=== PATIENT | male | born 1965 | race Caucasian/White ===

== ENCOUNTER 2019-05-11 10:01 | Outpatient (CLI) | payer OTHER ==
[2019-05-11 11:46] VITALS: BP 138/87
--- NOTE | 2019-05-11 11:46 | SLEEP CARE CONSULTATION ---
Information from patient questionnaire entered by Leigh Martinez. I have reviewed and concur with the information entered by Leigh Martinez. This document represents the service I personally performed and the decisions made by me, Zeyad Porter MD, [facility]. History of Present Illness Reason for Visit: New patient, Previously diagnosed sleep apnea, sleep apnea on CPAP therapy Chief Complaint: reports: Other (critical access hospital care) Duration of Symptoms: 9 years Usual bedtime: 2330 Time it takes to fall asleep: 30-60 minutes Snores at night: Yes Observed to quit breathing while asleep: Yes Sleeps alone due to snoring: Yes Number of times waking at night: 4 Reasons for waking at night: reports: Snoring Toss, Turn, or Twitch while sleeping: Yes Recalls having dreams: Yes Usually gets out of bed at: 0700 Feels refreshed in the morning: No Morning headache: No Sleepy or fatigued during the day: Yes Ever fallen asleep while driving: Yes Takes day naps: Yes Dreams during day naps: No Prior sleep studies: Yes Year and Where: 2016 [facility] Additional HPI information: I had the pleasure of seeing Mr. Thompson today regarding obstructive sleep apnea- hypopnea. As you know, he is a 54 year old gentleman who was diagnosed with the sleep-disordered breathing at the [facility] in 2017. The AHI was 48.5 and bubba oxygen saturation, 81%. He was prescribed a CPAP device set at 7 11 cmH2 O. He uses the ResMed [id number] every night and all night. The compliance data show usage in 162 out of the past 180 nights, averaging 7 hours a night. The residual AHI is 0.4 and average air leak is 3.3 L/minute. He wears a Respironics DreamWear nasal cushion mask. He gets his supplies from [employer]. He finds the treatment very beneficial. CPAP Compliance Data - Data Reviewed with Patient Average duration of nightly device use: 7h 0m Compliance rate %: 84 Current pressure setting (cmH2O): 7-11 Subjective Initial [place] Sleepiness Scale score: 7 Past Medical History Past Medical History: reports: Hypertension, Arthritis, Other (OSCAR on CPAP) Social History The patient's occupation is retired. Patient is and lives in [place]. Have you smoked in the past 12 months: Yes Cigarettes per day (20/pack): 20 Years of smokin Quit date: in process Smoking Pack Years: 42.0 Alcohol use: Yes Alcohol amount and frequency: couple times a year Caffeine use: Yes Caffeine amount and frequency: 4-5 times/week Allergies and Home Medications Drug allergies reviewed: Yes Home medication list reviewed: Yes Review of Systems Weight gain over past 5 years: 30 Weight loss over past 5 years: 20 Cardiovascular: reports: high blood pressure Respiratory: reports: wheeze Gastrointestinal: reports: heartburn Urinary: denies: incontinence, frequency, urgency, impotence, other Neurological: denies: headaches, seizure, head trauma, disorientation, speech dysfunction, gait or balance problems, fainting or unconsciousness, other Psychiatric: denies: Attention Deficit Hyperactivity, anxiety, depression, mood disorder, claustrophobia, other Ear/Nose/Throat: reports: nasal congestion, wisdom teeth removed Endocrine: reports: sluggishness Musculoskeletal: reports: joint pain, neck pain, back pain, mobility problems Immunologic: denies: sneezing, rash, itching, allergies to food or environment, other Physical Exam Vital signs obtained and entered by: Dr. Porter Blood Pressure: 138/87 Cuff size: regular Heart Rate: 88 O2 Saturation: 94 Height: 5 ft 10 in Weight: 260 lb Body Mass Index: 37.3 BMI Classification: Obesity Class 2 Neck circumference: 17 Mood/affect: Normal HEENT: No craniofacial malformation Nostrils: patent to airflow Turbinates: normal Septum: midline Mouth and throat: narrow oropharynx Soft palate: long Hard palate: normal Uvula: normal Uvula visualization: 25% Mallampati Class III Tongue: normal in size Tonsils: small Chin and jaw: Micrognathia Neck: normal w/o lymphadenopathy or thyromegaly Heart: regular rate and rhythm Lungs: clear bilaterally Abdomen: soft, non-tender Extremities: no edema or clubbing Neurologic: intact, no focal deficits Impression and Plan IMPRESSION: 1. Obstructive Sleep Apnea-Hypopnea Syndrome, severe, as previously diagnosed. The patient has had good treatment compliance. The current pressure setting appears effective and comfortable. The patient experiences improvement on the treatment. Narrow oropharynx and obesity are common predisposing factors for obstructive sleep apnea-hypopnea syndrome. Pathophysiology of sleep-disordered breathing was discussed. No adjustment is necessary. Plan: 1. Prescription made for supplies. The patient will stay with [facility]. 2. Try to lose weight. 3. Avoid alcohol, sedative and muscle relaxant around bedtime. 4. Return for follow up in a year or earlier if there is any problem. I spent 100% of this visit face to face with the patient with greater than 50% of this was spent time counseling the patient and coordination of care.
== END 2019-05-11 10:02 | disposition home or self-care (01) ==
LOC: SC 10:01
PROVIDERS: ATTEND Internal Medicine Pulmonary Disease
DX: G47.33 Obstructive sleep apnea (adult) (pediatric) (principal); E66.9 Obesity, unspecified; Z68.37 Body mass index [BMI] 37.0-37.9, adult
CPT/HCPCS: 99203; 99212

== ENCOUNTER 2020-10-10 11:10 | Outpatient (CLI) | payer OTHER ==
--- NOTE | 2020-10-10 11:39 | SLEEP CARE CONSULTATION ---
Information from patient questionnaire entered by Smita Bradford. I have reviewed and concur with the information entered by Smita Bradford. This document represents the service I personally performed and the decisions made by , Leti Ocasio ARNP. History of Present Illness Service Date and Time: 10/10/2020 1110 Previous diagnosis: Severe, Obstructive Sleep Apnea-Hypopnea Syndrome AHI: 48.5 (in 2016) Reason for follow up: annual (last seen 04/2019) Equipment type: CPAP Equipment obtained from: [employer] (getting supplies as needed) Mask style: Nasal Mask brand: Respironics (Dreamwear) Backup mask available: Yes (old mask) Last cushion change: 1 month Prior sleep studies: Yes Year and Where: [address] [place] [address] Sleep Lab Type of Sleep Study: Polysomnography HPI additional information: CHARISSE LEVINE was diagnosed to have severe, AHI 48.5, obstructive sleep apnea- hypopnea syndrome and returned today for CPAP therapy annual follow-up. CPAP Compliance Data - Data Reviewed with Patient Average duration of nightly device use: 7 hr 14 min Compliance rate %: 97 (180 days) Current pressure setting (cmH2O): 7-11 Humidity settin Average residual AHI: 0.3 Subjective Missed days of use due to: reports: other (machine error; not working, clicking noise for last 1.5 weeks) Patient concerns: reports: other (not working). denies: aerophagia, mask disc omfort, air blowing in eyes, mask leak noise, condensation in mask/hose, nasal congestion, dry mouth, nose, throat, epistaxis Observed to snore while using device: No Current pressure setting perceived as: comfortable On therapy, patient: reports: sleeping better, awakening more refreshed, being more awake and alert during the day, more rested overall. denies: drowsiness while driving Initial [place] Sleepiness Scale score: 7 (in 2019) Current [place] Sleepiness Scale score: 8 Allergies and Home Medications Home medication list reviewed: Yes (Plavix, baby aspirin, cholesterol pill, Metformin, Trulicity, Micardis) Review of Systems Review of systems same as previous: No (Stent placed February 2020 in coronary artery) Physical Exam Heart Rate: 75 O2 Saturation: 96 Height: 5 ft 10 in Weight: 237 lb Body Mass Index: 34.0 BMI Classification: Obese Impression and Plan 1. Obstructive Sleep Apnea-Hypopnea Syndrome, severe, with good treatment compliance and excellent apnea control. On CPAP therapy, the patient has better sleep quality and is more rested overall. Patient states his machine started to make a click at work about a week and half ago. He thinks he is due for a new machine anyway and would like to update this. The patients CPAP is over 5 years old and of reasonable use. In addition, it is starting to make noise and will not run, a sign of malfunction. Thus, the CPAP will be updated. A DWO prescription will be made. Compliance guidelines for new device and follow up discussed. Patient's apnea severity and rationale for treatment to reduce apnea, improve sleep quality and reduce cardiovascular and cerebrovascular events was reviewed. I also reviewed the benefit of consistent device use of CPAP for hypertension. * Continue auto CPAP pressure at 7-11 cmH2O * Update machine due to malfunction * Notify me if snoring with mask or feeling that the pressure is too much or too little * Attempt to lose weight * Call this office if any problems using CPAP * Return for follow up after getting set up with new machine, or sooner if concerns arise Counseling Topics: Spare mask, Weight loss health impact Visit Type: In Office Time Spent with Patient (minutes): 21 Provider Statement: I spent 100% of the Face to Face Visit with the patient with greater than 50% spent counseling the patient and coordination of care.
== END 2020-10-10 11:11 | disposition home or self-care (01) ==
LOC: SC 11:10
PROVIDERS: ATTEND Nurse Practitioner Family
DX: G47.33 Obstructive sleep apnea (adult) (pediatric) (principal); E66.9 Obesity, unspecified; Z68.34 Body mass index [BMI] 34.0-34.9, adult
CPT/HCPCS: 99212; 99213

== ENCOUNTER 2021-06-19 12:39 | Outpatient (CLI) | payer OTHER ==
[2021-06-19 13:36] VITALS: BP 126/78
--- NOTE | 2021-06-19 13:36 | SLEEP CARE CONSULTATION ---
Information from patient questionnaire entered by Adryan Herrera MA. I have reviewed and concur with the information entered by Adryan Herrera MA. This document represents the service I personally performed and the decisions made by , Leti Ocasio ARNP. History of Present Illness Service Date and Time: 06/19/2021 1239 Previous diagnosis: Severe, Obstructive Sleep Apnea-Hypopnea Syndrome AHI: 48.5 (in 2017) Reason for follow up: other (8 MONTH F/U, RX FOR NEW MACHINE,) Equipment type: CPAP Equipment obtained from: [email or web address] (getting supplies as needed) Mask style: Nasal Backup mask available: Yes (other mask) Last cushion change: 2 weeks ago Prior sleep studies: Yes Year and Where: [facility] Type of Sleep Study: Polysomnography HPI additional information: CHARISSE LEVINE was diagnosed to have severe, AHI 48.5, obstructive sleep apnea- hypopnea syndrome and returned today for CPAP therapy 8 months follow-up. Sleep Study - Results Type of Sleep Study: Polysomnography Prior sleep studies: Yes Year and Where: 2016 - [facility] CPAP Compliance Data - Data Reviewed with Patient Average duration of nightly device use: 7 HOURS 13 MINUTES Compliance rate %: 97 Current pressure setting (cmH2O): 7-11 Average residual AHI: 0.3 Central apnea: .1 Obstructive apnea: .2 Average large leak: 3.5 Subjective Patient concerns: reports: other (BROKEN MACHINE; was fixed). denies: aerophagia, mask discomfort, air blowing in eyes, mask leak noise, condensation in mask/hose, nasal congestion, dry mouth, nose, throat, epistaxis Observed to snore while using device: No Current pressure setting perceived as: comfortable On therapy, patient: reports: sleeping better, awakening more refreshed, being more awake and alert during the day, more rested overall. denies: drowsiness while driving Initial [place] Sleepiness Scale score: 7 (in 2019) Current [place] Sleepiness Scale score: 6 (2021) Allergies and Home Medications Home medication list reviewed: Yes (stopped Plavik, Micardis increased 80 mg) Review of Systems Review of systems same as previous: Yes (no changes) Physical Exam Vital signs obtained and entered by: SHU ISSA Blood Pressure: 126/78 (RIGHT, PULSE 87, RESP 18, ) Cuff size: wrist Heart Rate: 71 O2 Saturation: 95 (CLOTH MASK) Height: 5 ft 10 in Weight: 250 lb Body Mass Index: 35.9 BMI Classification: Obese Impression and Plan 1. Obstructive Sleep Apnea-Hypopnea Syndrome, severe, with good treatment compliance and excellent apnea control. On CPAP therapy, the patient has better sleep quality and is more rested overall. Charisse states he is eligible for a new device. He had to fix his CPAP once and does not want to have it break on him again. The patients CPAP is over 5 years old and of reasonable use. Thus, the CPAP will be updated. A DWO prescription will be made. Compliance guidelines for new device and follow up discussed. Patient's apnea severity and rationale for treatment to reduce apnea, improve sleep quality and reduce cardiovascular and cerebrovascular events was reviewed. I also reviewed the benefit of consistent device use of CPAP for hypertension. Patient was encouraged to try to lose weight. * Continue auto CPAP pressure at 7-11 cmH2O * Update device * Notify me if snoring with mask or feeling that the pressure is too much or too little * Attempt to lose weight * Call this office if any problems using CPAP * Return for follow up one month after obtaining new device, or sooner if concerns arise Counseling Topics: Spare mask, Weight loss health impact Visit Type: In Office Time Spent with Patient (minutes): 26 Provider Statement: I spent 100% of the Face to Face Visit with the patient with greater than 50% spent counseling the patient and coordination of care.
== END 2021-06-19 12:40 | disposition home or self-care (01) ==
LOC: SC 12:39
PROVIDERS: ATTEND Nurse Practitioner Family
DX: G47.33 Obstructive sleep apnea (adult) (pediatric) (principal); E66.9 Obesity, unspecified; Z68.35 Body mass index [BMI] 35.0-35.9, adult
CPT/HCPCS: 99212; 99213

== ENCOUNTER 2023-05-09 10:18 | Outpatient (CLI) | payer OTHER ==
--- NOTE | 2023-05-09 11:04 | Sleep Patient Instructions ---
Sleep Center Visit Summary - Patient Visit Information Reason for Visit: Annual Visit - Patient Instructions Additional Instructions: You will continue with CPAP therapy with pressure changed to 8-12 cmH2O. A supply prescription will be updated with your DME. We encourage you to continue to try to lose weight. Please follow up with the sleep care office in 1 year. - Clinic Information Contact: [facility] [address] [place] [address] [email or web address] T: [phone]
[2023-05-09 11:09] VITALS: BP 103/81; O2SAT 84
--- NOTE | 2023-05-09 11:09 | SLEEP CARE CONSULTATION ---
Information from patient questionnaire entered by Kandice Cho. I have reviewed and concur with the information entered by Kandice Cho. This document represents the service I personally performed and the decisions made by me, Leti Ocasio ARNP. History of Present Illness Service Date and Time: 05/09/2023 1018 Previous diagnosis: Severe, Obstructive Sleep Apnea-Hypopnea Syndrome AHI: 48.5 (in 2017) Reason for follow up: annual (LAST SEEN 06/2021) Equipment type: CPAP (ResMed Airsense 11, s/u 06/2021) Equipment obtained from: [employer] (getting supplies as needed) Mask style: Nasal Mask brand: Resmed ([id number]) Backup mask available: Yes Last cushion change: this morning Prior sleep studies: Yes Year and Where: 2016 - [facility] Type of Sleep Study: Polysomnography HPI additional information: CHARISSE LEVINE was diagnosed to have severe, AHI 48.5, obstructive sleep apnea- hypopnea syndrome and returned today for CPAP therapy annual follow-up. Sleep Study - Results Type of Sleep Study: Polysomnography Prior sleep studies: Yes Year and Where: [address] [place] [address] Sleep Lab CPAP Compliance Data - Data Reviewed with Patient Average duration of nightly device use: 7 hours Compliance rate %: 88 (327/365 days used) Current pressure setting (cmH2O): 7-11 Average residual AHI: 0.6 Central apnea: 0.1 Obstructive apnea: 0.3 Hypopnea: 0.1 Average large leak: 13.8 L/min Compliance data discussion: He has been using his older ResMed Airsense 10 because the pressure on his new machine feels too low. He is using it on average 7 hours 25 minutes with pressure set at 7-11 cmH2O. His residual AHI if at 0.5. Subjective Missed days of use due to: reports: other (using other CPAP backup) Patient concerns: denies: aerophagia, mask discomfort, air blowing in eyes, mask leak noise, condensation in mask/hose, nasal congestion, dry mouth, nose, throat, epistaxis Observed to snore while using device: No Current pressure setting perceived as: too low (with new machine) On therapy, patient: reports: sleeping better, awakening more refreshed, being more awake and alert during the day, more rested overall. denies: drowsiness while driving Initial [place] Sleepiness Scale score: 7 (in 2019) Current [place] Sleepiness Scale score: 6 (05/09/23) Allergies and Home Medications Known drug allergies: No Drug allergies reviewed: Yes Home medication list reviewed: Yes (as listed) Allergy and home medication list: Home Medications Medication Instructions Recorded Confirmed Last Taken Type Aspirin [Vazalore] See Rx Instructions .ROUTE .COMPLEX 05/09/23 05/09/23 Unknown History Atorvastatin [Lipitor] See Rx Instructions .ROUTE .COMPLEX 05/09/23 05/09/23 Unknown History Cholecalciferol (Vitamin D3) See Rx Instructions .ROUTE .COMPLEX 05/09/23 05/09/23 Unknown History [Vitamin D3] Dextroamphetamine/Amphetamine See Rx Instructions .ROUTE .COMPLEX 05/09/23 05/09/23 Unknown History [Mydayis ER 12.5 mg Capsule] Dulaglutide [Trulicity] See Rx Instructions .ROUTE .COMPLEX 05/09/23 05/09/23 Unknown History Varenicline Tartrate [Chantix] See Rx Instructions .ROUTE .COMPLEX 05/09/23 05/09/23 Unknown History metFORMIN [Glucophage] See Rx Instructions .ROUTE .COMPLEX 05/09/23 05/09/23 Unknown History Review of Systems Review of systems same as previous: Yes (NO CHANGE) Physical Exam Vital signs obtained and entered by: KADNICE Bernal MA Blood Pressure: 103/81 (RIGHT ARM) Cuff size: regular Heart Rate: 96 O2 Saturation: 84 Height: 5 ft 10 in Weight: 245 lb 9.6 oz Body Mass Index: 35.2 BMI Classification: Obese Impression and Plan 1. Obstructive Sleep Apnea-Hypopnea Syndrome, severe, with good treatment compliance and good apnea control. On CPAP therapy, the patient has better sleep quality and is more rested overall. Patient states his new AirSense 11 does not have the right pressure set up because his pressure is starting at 4 cm H2O when he turns on his machine. He has gone back to using his old AirSense 10 because he says it starts at 7 cm H2O. He does feel like he could use even a little more pressure, that even 7 is too low. The patients pressure will be changed to autoCPAP 8-12 cmH20 for patient comfort. Patient advised to contact me if pressure change is uncomfortable so that it can be adjusted. Goals for apnea control discussed. Patient's apnea severity and rationale for treatment to reduce apnea, improve sleep quality and reduce cardiovascular and cerebrovascular events was reviewed. I also reviewed the benefit of consistent device use of CPAP for hypertension. 2. Obesity, unspecified. Currently patients BMI is 35.2. Obesity increases the risk of apnea, CPAP pressure requirements and overall health risks especially cardiovascular and diabetes. Thus patient is advised to lose weight. * Change auto CPAP pressure to 8-12 cmH2O * Update supply prescription * Notify me if snoring with mask or feeling that the pressure is too much or too little * Attempt to lose weight * Call this office if any problems using CPAP * Return for follow up in 12 months, or sooner if concerns arise Adjust device pressure to (cmH2O): 8-12 Counseling Topics: Weight loss health impact Prescriptions: Device supplies Follow up with Sleep Care in: 1 year Visit Type: In Office Time Spent with Patient (minutes): 24 Provider Statement: I spent 100% of the Face to Face Visit with the patient with greater than 50% spent counseling the patient and coordination of care.
== END 2023-05-09 10:19 | disposition home or self-care (01) ==
LOC: SC 10:18
PROVIDERS: ATTEND Nurse Practitioner Family
DX: G47.33 Obstructive sleep apnea (adult) (pediatric) (principal); E66.9 Obesity, unspecified; Z68.35 Body mass index [BMI] 35.0-35.9, adult
CPT/HCPCS: 99212; 99213